=== PATIENT | female | born 1945 | race Caucasian/White ===

== ENCOUNTER 2021-10-25 12:19 | Emergency (ER) | payer OTHER ==
[2021-10-25 12:40] VITALS: BP 126/83; PULSE 86; TEMP 99.2; BMI 25.2
== END 2021-10-25 14:41 | disposition home or self-care (01) ==
LOC: FER 12:19
DX: S82.831A Other fracture of upper and lower end of right fibula, initial encounter for closed fracture (principal); W01.0XXA Fall on same level from slipping, tripping and stumbling without subsequent striking against object, initial encounter; Y92.002 Bathroom of unspecified non-institutional (private) residence as the place of occurrence of the external cause
CPT/HCPCS: 73610-TC-RT-FY; 73630-TC-RT-FY; 99283-25